=== PATIENT | female | born 1995 | race Caucasian/White ===

== ENCOUNTER 2017-08-13 13:09 | Emergency (ER) | payer BC ==
[~2017-08-13] VITALS: Ht 154.9 cm; Wt 99.8 kg
[2017-08-13] MEDS ORDERED: ALDACTONE25 MG PO (13:25)
[2017-08-13] MEDS ORDERED: METFORMIN HCL500 MG PO (13:25)
[2017-08-13] MEDS ORDERED: BIRTH CONTROL PILL (13:25)
[2017-08-13 14:10] LABS: ABSOLUTE BASOPHILS 0.1 thou/uL (0.0-0.2); ABSOLUTE EOSINOPHILS 0.6 thou/uL (0.0-0.7); ABSOLUTE LYMPHOCYTES 3.3 thou/uL (0.8-5.3); ABSOLUTE NEUTROPHILS 7.7 thou/uL (1.6-8.1); BASOPHILS 0.6 %; EOSINOPHILS 4.7 %; HEMATOCRIT 37.7 % (37.0-47.0); HEMOGLOBIN 12.8 gm/dL (12.0-15.0); LYMPHOCYTES 26.3 %; MCHC 33.9 g/dL (28.0-37.0); MCV 85.4 fL (80.0-100.0); MONOCYTES 8.1 %; MPV 8.9 fl. (7.2-11.1); NUCLEATED RBCS 0 /100WBC; PLATELET COUNT* 442 thou/uL (150-400); POLYS 60.3 %; RBC 4.41 mil/uL (4.20-5.00); RDW-CV 13.2 % (10.5-14.5); WBC 12.7 thou/uL (4.0-11.0)
[2017-08-13 14:17] LABS: URINE BILIRUBIN NEGATIVE (Negative); URINE BLOOD TRACE (Negative); URINE CLARITY CLEAR; URINE COLOR YELLOW; URINE GLUCOSE-RANDOM NEGATIVE (Negative); URINE KETONES NEGATIVE (Negative); URINE LEUKOCYTES-REFLEX NEGATIVE (Negative); URINE NITRITE-REFLEX NEGATIVE (Negative); URINE PROTEIN NEGATIVE (Negative); URINE UROBILINOGEN 0.2 E.U./dl (0.2-1.0)
[2017-08-13 14:20] LABS: CALCIUM 8.7 mg/dL (8.5-10.1); CREATININE 0.8 mg/dL (0.6-1.3); POTASSIUM 3.8 mmol/L (3.5-5.1)
[2017-08-13 14:24] LABS: ALBUMIN 3.6 g/dL (3.4-5.0); TOTAL BILIRUBIN 0.7 mg/dL (<0.1-1.0)
[2017-08-13] MEDS ORDERED: PROMETHAZINE HC25 M1 PO (15:56)
[2017-08-13] MEDS ORDERED: BENTYL 20 MG TA20 M1 PO (15:56)
[2017-08-13 16:04] VITALS: BP 140/87
== END 2017-08-13 16:05 | disposition home or self-care (01) ==
LOC: M.ERS 13:09
PROVIDERS: Nurse Practitioner
DX: K52.9 Noninfective gastroenteritis and colitis, unspecified (principal)